=== PATIENT | male | born 1980 | race Hispanic/Latino ===

== ENCOUNTER 2018-12-22 17:05 | Emergency (ER) | payer OTHER, SELFPAY ==
[2018-12-22] MEDS ORDERED: HYDROcodone/Acetaminophen 10/325 mg Tablet ONE (17:20)
[2018-12-22] MEDS ORDERED: Lidocaine 1% 20 ML MDV ONE (17:35)
--- NOTE | 2018-12-22 17:38 | RAD ---
XR Wrist 3 Lt View STANDARD History: Injury Comparison: None. Findings: Intra-articular distal radius fracture with volar displacement of the radial tuberosity. Th ere is also fracture of the base of the ulnar styloid process with displaced fragment. Scapholunate interval is widened. There is punctate radiopaque debris over the wrist and hand. No scaphoid fracture is appreciated. Impression: Extensive fractures as described.
[2018-12-22] MEDS ORDERED: Ketamine 50 MG/ML (10ML VIAL) ONE (18:08)
--- NOTE | 2018-12-22 18:18 | RAD ---
LEFT WRIST: Comparison: 12-22-18 at 5:32 p.m. History: Deduction of distal radial fracture. FINDINGS: Three views of the left shows a comminuted intraarticular fracture of the distal radius and associate d ulnar styloid fracture. There is better alignment of the fracture fragments. Surrounding soft tissu e swelling is seen. IMPRESSION: Distal radius and ulnar styloid fracture. POS: [facility]
--- NOTE | 2018-12-22 19:17 | RAD ---
THREE VIEWS LEFT WRIST: Comparison: 12-22-18 at 6:02 p.m. History: Distal radius fracture status post reduction. FINDINGS: Three views of the left wrist shows an overlying splint which is obscures fine bone and soft tissue d etail. There is a comminuted intraarticular fracture of the distal radius and associated ulnar styloi d fracture. Alignment has improved compared to the pre-reduction radiograph. There may be slight wide scot of the scaphoid lunate interval. IMPRESSION: Reduction of distal radius fracture. POS: [facility]
== END 2018-12-22 19:50 | disposition home or self-care (01) ==
LOC: MADERS 17:05
DX: S52.512A Displaced fracture of left radial styloid process, initial encounter for closed fracture (principal); S52.612A Displaced fracture of left ulna styloid process, initial encounter for closed fracture; S51.811A Laceration without foreign body of right forearm, initial encounter; F17.210 Nicotine dependence, cigarettes, uncomplicated; V49.9XXA Car occupant (driver) (passenger) injured in unspecified traffic accident, initial encounter
CPT/HCPCS: 12002; 25605; 96374; J2001